=== PATIENT | male | born 1995 | race Caucasian/White ===

== ENCOUNTER 2017-08-26 21:15 | Emergency (ER) | payer MEDICAID ==
[~2017-08-26] VITALS: Ht 182.9 cm; Wt 98.9 kg
[2017-08-26 21:17] VITALS: BP 130/86
[2017-08-26] MEDS ORDERED: KETOROLAC 30 MG/1 ML ONE (22:16)
[2017-08-26] MEDS ORDERED: KETOROLAC 30 MG/1 ML IM ONE (22:30)
== END 2017-08-26 22:56 | disposition home or self-care (01) ==
LOC: ED 22:50
DX: M62.830 Muscle spasm of back (principal); J45.909 Unspecified asthma, uncomplicated
CPT/HCPCS: 99284